=== PATIENT | female | born 1975 | race Caucasian/White ===

== ENCOUNTER 2016-10-16 21:36 | Emergency (ER) | payer MEDICAID ==
[~2016-10-16] VITALS: Ht 157.5 cm; Wt 63.7 kg
[2016-10-16] MEDS ORDERED: KETOROLAC 30 MG/1 ML ONE (23:21)
[2016-10-16] MEDS ORDERED: ONDANSETRON 2MG/ML, 2ML ONE (23:21)
[2016-10-16] MEDS ORDERED: DIPHENHYDRAMINE 50 MG/ML, 1ML ONE (23:21)
[2016-10-16] MEDS ORDERED: PROCHLORPERAZINE 5 MG/ML, 2ML ONE (23:21)
[2016-10-16] MEDS ORDERED: PROCHLORPERAZINE 5 MG/ML, 2ML IVPush ONE (23:30)
[2016-10-16] MEDS ORDERED: SODIUM CHLORIDE 0.9% 1,000ML IVBOLUS ONE (23:30)
[2016-10-16] MEDS ORDERED: KETOROLAC 30 MG/1 ML IVPush ONE (23:30)
[2016-10-16] MEDS ORDERED: SODIUM CHLORIDE FLUSH 10ML SYR IVF ONE (23:30)
[2016-10-16] MEDS ORDERED: ONDANSETRON 2MG/ML, 2ML IVPush ONE (23:30)
[2016-10-16] MEDS ORDERED: DIPHENHYDRAMINE 50 MG/ML, 1ML IVPush ONE (23:30)
[2016-10-16 23:43] LABS: ASPARTATE AMINO TRANSFERASE 13 U/L (15-37); BLOOD UREA NITROGEN 13 mg/dL (7-18)
[2016-10-16 23:50] LABS: IS PT STATUS REG ER OR PRE ER? YES
[2016-10-17 03:13] VITALS: BP 93/48
== END 2016-10-17 03:15 | disposition home or self-care (01) ==
LOC: ED 23:59
DX: G43.C1 Periodic headache syndromes in child or adult, intractable (principal); R11.2 Nausea with vomiting, unspecified; E86.0 Dehydration
CPT/HCPCS: 36415; 70450; 71010; 80053; 81003; 83690; 84484; 84703; 85025; 93005; 96361; 96374; 96375; 99285; J0780; J1200; J1885; J2405; J7030

== ENCOUNTER 2018-09-05 09:28 | Outpatient (CLI) | payer OTHER ==
[2018-09-24] MEDS ORDERED: None per pt (13:12)
== END 2018-09-05 23:59 | disposition home or self-care (01) ==
LOC: RAD 09:28
PROVIDERS: ATTEND Obstetrics & Gynecology
DX: N85.8 Other specified noninflammatory disorders of uterus (principal)
CPT/HCPCS: 76830

== ENCOUNTER 2018-09-25 05:46 | Observation (INO) | payer OTHER ==
[2018-09-24 13:50] LABS: BASOPHILS # (AUTO) 0.02 x10^3/uL (0-0.1); BASOPHILS % (AUTO) 0 % (0-1); EOSINOPHILS # (AUTO) 0.11 x10^3/uL (0-0.4); EOSINOPHILS % (AUTO) 2 % (1-7); LYMPHOCYTES % (AUTO) 30 % (22-44); MD NO; MEAN CORPUSCULAR HGB CONC 32.6 g/dL (32.4-35.8); MEAN PLATELET VOLUME 8.4 fL (7.4-10.4); MONOCYTES # (AUTO) 0.55 x10^3/uL (0.2-0.8); MONOCYTES % (AUTO) 8 % (2-9); NEUTROPHILS # (AUTO) 4.08 x10^3/uL (1.8-6.8); NEUTROPHILS % (AUTO) 60 % (42-75); PLATELET COUNT 314 x10^3/uL (130-400); RED BLOOD COUNT 4.22 x10^6/uL (3.82-5.3)
[2018-09-24 13:58] LABS: ALANINE AMINOTRANSFERASE 19 U/L (12-78); ALBUMIN 3.3 g/dL (3.4-5.0); ANION GAP 4 mmol/L (5-15); CALCIUM 8.4 mg/dL (8.5-10.1); CHLORIDE 107 mmol/L (98-107); CREATININE 0.57 mg/dL (0.55-1.02)
[2018-09-24 14:03] LABS: ALKALINE PHOSPHATASE 90 U/L (45-117); BILIRUBIN,TOTAL 0.3 mg/dL (0.2-1.0); TOTAL PROTEIN 6.7 g/dL (6.4-8.2)
[~2018-09-25] VITALS: Ht 157.5 cm; Wt 77.7 kg
[~2018-09-25 05:46] MED LIST: None per pt
[2018-09-25] MEDS ORDERED: LACTATED RINGERS 1,000 ML IV SCH (06:04)
[2018-09-25] MEDS ORDERED: BUPIVACAINE/PF 0.25% ONE (07:05)
[2018-09-25] MEDS ORDERED: EPINEPHRINE 1 MG/ML, 1ML ONE (07:05)
[2018-09-25] MEDS ORDERED: FLUORESCEIN SODIUM 500 MG/5 ML ONE (07:05)
[2018-09-25] MEDS ORDERED: FENTANYL PF 250 MCG/5ML ONE (07:29)
[2018-09-25] MEDS ORDERED: MIDAZOLAM 1 MG/ML, 2ML ONE (07:29)
[2018-09-25] MEDS ORDERED: SCOPOLAMINE PATCH, 1.5MG PATCH.TD72 TD ONE (07:30)
[2018-09-25] MEDS ORDERED: GABAPENTIN 300 MG CAPSULE PO ONE (07:30)
[2018-09-25] MEDS ORDERED: DIAZEPAM 5 MG TABLET PO ONE (07:30)
[2018-09-25] MEDS ORDERED: ACETAMINOPHEN 500 MG TABLET PO ONE (07:30)
[2018-09-25] MEDS ORDERED: ONDANSETRON 2MG/ML, 2ML IV PRN ×2 (08:30→17:30)
[2018-09-25] MEDS ORDERED: hydrALAzine 20 MG/ML, 1ML IV PRN (08:30)
[2018-09-25] MEDS ORDERED: MEPERIDINE/PF 25MG/0.5ML IVPush PRN (08:30)
[2018-09-25] MEDS ORDERED: ALBUTEROL/IPRATROPIUM 2.5MG/0.5MG, 3 ML NPPB PRN (08:30)
[2018-09-25] MEDS ORDERED: SCOPOLAMINE PATCH, 1.5MG PATCH.TD72 TD PRN (08:30)
[2018-09-25] MEDS ORDERED: HYDROmorphone 2 MG/ML, 1ML IVPush PRN (08:30)
[2018-09-25] MEDS ORDERED: MIDAZOLAM 1 MG/ML, 2ML IV PRN (08:30)
[2018-09-25] MEDS ORDERED: GLYCOPYRROLATE 0.2MG/1ML, 5ML ONE (09:36)
[2018-09-25] MEDS ORDERED: ROCURONIUM 10MG/ML,5ML ONE (09:36)
[2018-09-25] MEDS ORDERED: ONDANSETRON 2MG/ML, 2ML ONE (09:36)
[2018-09-25] MEDS ORDERED: NEOSTIGMINE 1 MG/ML, 10ML ONE (09:36)
[2018-09-25] MEDS ORDERED: CEFAZOLIN 1,000 MG ONE (09:36)
[2018-09-25] MEDS ORDERED: PROPOFOL 10 MG/ML, 20ML ONE (09:36)
[2018-09-25] MEDS ORDERED: SUCCINYLCHOLINE 20 MG/ML, 10ML ONE (09:36)
[2018-09-25] MEDS ORDERED: DEXAMETHASONE 4 MG/ML, 1ML ONE (09:36)
[2018-09-25] MEDS ORDERED: PROMETHAZINE 25 MG/ML, 1ML ONE (09:46)
[2018-09-25] MEDS ORDERED: FENTANYL PF 100 MCG/2ML ONE (09:47)
[2018-09-25] MEDS ORDERED: OXYcodone 5 MG/5 ML ORAL.SOL UDC ONE ×2 (09:47→10:38)
[2018-09-25] MEDS: FENTANYL PF 100 MCG/2ML IV PRN ×3 (09:52→11:04)
[2018-09-25] MEDS: OXYcodone 5 MG/5 ML ORAL.SOL UDC PO PRN ×3 (09:56→16:19)
[2018-09-25] MEDS: PROMETHAZINE 25 MG/ML, 1ML IV PRN ×2 (09:58→11:00)
[2018-09-25 14:19] LABS: MEAN CORPUSCULAR HEMOGLOBIN 30.7 pg (27.0-34.8); MEAN CORPUSCULAR HGB CONC 33.3 g/dL (32.4-35.8); MEAN CORPUSCULAR VOLUME 92.1 fL (80-100); MEAN PLATELET VOLUME 8.6 fL (7.4-10.4); PLATELET COUNT 309 x10^3/uL (130-400); RED BLOOD COUNT 4.04 x10^6/uL (3.82-5.3)
[2018-09-25 14:30] LABS: MD YES
[2018-09-25] MEDS ORDERED: KETOROLAC 30 MG/1 ML ONE (15:33)
[2018-09-25 15:40] LABS: BAND#(MANUAL) 0.27 x10^3/uL; BANDS%(MANUAL) 2 % (0-7); LYMPH#(MANUAL) 0.41 x10^3/uL (1-3.4); LYMPHS% (MANUAL) 3 % (22-44); MONOS#(MANUAL) 0.14 x10^3/uL (0.3-2.7); MONOS% (MANUAL) 1 % (2-9); SEG#(MANUAL) 12.78 x10^3/uL (1.8-6.8); SEGS% (MANUAL) 94 % (42-75)
[2018-09-25 15:41] LABS: <PLATELET ESTIMATE> ADEQUATE; <PLT MORPHOLOGY> NORMAL PLT MORPH; <RBC MORPHOLOGY> NORMAL
[2018-09-25] MEDS: KETOROLAC 30 MG/1 ML IVPush SCH ×2 (15:53→21:56)
[2018-09-25 16:59] VITALS: BP 96/59
[2018-09-25] MEDS ORDERED: HYDROmorphone 2 MG/ML, 1ML IV PRN (17:30)
[2018-09-25] MEDS ORDERED: KETOROLAC 30 MG/1 ML IV PRN (17:30)
[2018-09-25] MEDS ORDERED: ACETAMINOPHEN 650 MG SUPP PR PRN (17:30)
[2018-09-25] MEDS ORDERED: ACETAMINOPHEN 325 MG TABLET PO PRN (17:30)
[2018-09-25] MEDS ORDERED: BISACODYL 10 MG SUPP PR PRN (17:30)
[2018-09-25] MEDS ORDERED: INSTRUCTION SEE COMMENTS XX PRN (17:30)
[2018-09-25] MEDS ORDERED: MEPERIDINE/PF 100 MG/ML IM PRN (17:30)
[2018-09-25] MEDS: D5%-LACTATED RINGERS 1,000 ML IV SCH (17:49)
[2018-09-25] MEDS ORDERED: morphine SULFATE 10 MG/ML, 1ML IV PRN (18:00)
[2018-09-25 19:26] VITALS: BP 92/52
[2018-09-25] MEDS ORDERED: FLURAZEPAM 15 MG CAPSULE PO PRN (21:00)
[2018-09-25] MEDS ORDERED: ZOLPIDEM 5MG TABLET PO PRN (21:00)
[2018-09-25] MEDS ORDERED: SENNA/DOCUSATE TABLET PO SCH (21:00)
[2018-09-25] MEDS: IBUPROFEN 600 MG TABLET PO SCH (21:00)
[2018-09-25] MEDS: DOCUSATE 100 MG CAPSULE PO SCH (21:18)
[2018-09-25] MEDS: OXYcodone/APAP 5/325MG TABLET PO PRN (21:18)
[2018-09-25] MEDS: SIMETHICONE 80 MG CHEW TAB PO SCH (21:18)
[2018-09-26 00:03] VITALS: BP 94/58
[2018-09-26] MEDS: D5%-LACTATED RINGERS 1,000 ML IV SCH ×2 (02:00→08:08)
[2018-09-26] MEDS: OXYcodone/APAP 5/325MG TABLET PO PRN (02:20)
[2018-09-26 03:28] VITALS: BP 94/59
[2018-09-26] MEDS: KETOROLAC 30 MG/1 ML IVPush SCH ×2 (03:56→10:09)
[2018-09-26] MEDS: IBUPROFEN 600 MG TABLET PO SCH ×2 (05:51→10:08)
[2018-09-26 07:53] VITALS: BP 97/64
[2018-09-26] MEDS: DOCUSATE 100 MG CAPSULE PO SCH (08:41)
[2018-09-26] MEDS: SIMETHICONE 80 MG CHEW TAB PO SCH (08:42)
[2018-09-26 09:36] LABS: MEAN CORPUSCULAR HEMOGLOBIN 29.7 pg (27.0-34.8); MEAN CORPUSCULAR HGB CONC 32.1 g/dL (32.4-35.8); MEAN CORPUSCULAR VOLUME 92.5 fL (80-100); MEAN PLATELET VOLUME 8.4 fL (7.4-10.4); PLATELET COUNT 281 x10^3/uL (130-400); RED BLOOD COUNT 3.56 x10^6/uL (3.82-5.3); RED CELL DISTRIBUTION WIDTH 13.3 % (9.6-15.2)
[2018-09-26 09:37] LABS: HEMOGRAM NOTE RECHECKED
[2018-09-26 10:48] VITALS: BP 99/64
[2018-09-26 10:53] LABS: BASOPHILS # (AUTO) 0.02 x10^3/uL (0-0.1); BASOPHILS % (AUTO) 0 % (0-1); EOSINOPHILS # (AUTO) 0.02 x10^3/uL (0-0.4); EOSINOPHILS % (AUTO) 0 % (1-7); LYMPHOCYTES # (AUTO) 2.21 x10^3/uL (1-3.4); LYMPHOCYTES % (AUTO) 22 % (22-44); MD SCAN; MONOCYTES # (AUTO) 0.95 x10^3/uL (0.2-0.8); MONOCYTES % (AUTO) 9 % (2-9); NEUTROPHILS % (AUTO) 68 % (42-75)
[2018-09-26] MEDS ORDERED: OXYC-302 PO (11:46)
[2018-09-26] MEDS ORDERED: DOCU-131 PO (11:47)
[2018-09-26] MEDS ORDERED: IBUP-1222 PO (11:47)
== END 2018-09-26 12:07 | disposition home or self-care (01) ==
LOC: OUT 05:46 → ORIP 16:17 → 4NOR 16:40
PROVIDERS: ADMIT Obstetrics & Gynecology; ATTEND Obstetrics & Gynecology
DX: N92.0 Excessive and frequent menstruation with regular cycle (principal); D25.9 Leiomyoma of uterus, unspecified; N94.6 Dysmenorrhea, unspecified; N85.4 Malposition of uterus; Z98.891 History of uterine scar from previous surgery; Z98.51 Tubal ligation status
CPT/HCPCS: 36415; 58552; 80053; 84703; 85025; 86850; 86900; 88307; 96374; 96376; G0378; J0171; J0330; J0690; J1100; J1885; J2250; J2405; J2550; J2704; J2710; J3010; J3490; J7120; J7121

== ENCOUNTER 2018-10-01 11:54 | Emergency (ER) | payer OTHER ==
[~2018-10-01] VITALS: Ht 157.5 cm; Wt 73.8 kg
[~2018-10-01 11:54] MED LIST changes: +DOCU-131 PO; +IBUP-1222 PO; +OXYC-302 PO
[2018-10-01 12:49] LABS: BASOPHILS # (AUTO) 0.03 x10^3/uL (0-0.1); BASOPHILS % (AUTO) 0 % (0-1); EOSINOPHILS % (AUTO) 1 % (1-7); LYMPHOCYTES # (AUTO) 1.78 x10^3/uL (1-3.4); LYMPHOCYTES % (AUTO) 22 % (22-44); MD NO; MEAN CORPUSCULAR HEMOGLOBIN 30.1 pg (27.0-34.8); MEAN CORPUSCULAR HGB CONC 32.9 g/dL (32.4-35.8); MEAN CORPUSCULAR VOLUME 91.3 fL (80-100); MEAN PLATELET VOLUME 8.6 fL (7.4-10.4); MONOCYTES # (AUTO) 0.72 x10^3/uL (0.2-0.8); MONOCYTES % (AUTO) 9 % (2-9); NEUTROPHILS # (AUTO) 5.63 x10^3/uL (1.8-6.8); NEUTROPHILS % (AUTO) 68 % (42-75); PLATELET COUNT 388 x10^3/uL (130-400); RED BLOOD COUNT 4.18 x10^6/uL (3.82-5.3)
--- NOTE | 2018-10-01 16:13 | NUR ---
DIRECTOR OF WOMEN'S SERVICES: PT TO ROOM FROM LOBBY, VIA WHEELCHAIR
--- NOTE | 2018-10-01 16:25 | NUR ---
PT BROUGHT BACK TO ROOM IN W/C. ABLE TO TRANSFER WITH STEADY GAIT. PT PRESENTS WITH RIGHT POSTERIOR GILBERT THAT RADIATES INTO NECK AND RIGHT SHOULDER STARTING 3 DAYS AGO. STATES SOME N/V. HAS NOT VOMITED TODAY. WAS RECENTLY IN HOSPITAL FOR AN ABD SURGERY. NAD NOTED. BREATHING REGULAR AND UNLABORED. AWAITING FOR EVAL AND ORDERS. WILL CONTINUE TO MONITOR.
[2018-10-01] MEDS ORDERED: BUPIVACAINE 0.25% ONE (16:50)
[2018-10-01] MEDS ORDERED: KETOROLAC 30 MG/1 ML ONE (16:50)
[2018-10-01] MEDS ORDERED: ONDANSETRON ODT 4 MG ONE (16:50)
[2018-10-01] MEDS ORDERED: ACETAMINOPHEN 325 MG TABLET ONE (16:50)
[2018-10-01] MEDS ORDERED: LIDOCAINE-MPF 1%, 5ML ONE (16:50)
[2018-10-01] MEDS ORDERED: DIPHENHYDRAMINE 25 MG CAPSULE ONE (16:51)
--- NOTE | 2018-10-01 16:59 | NUR ---
PT MEDICATED PER JUN. RIGHTS VERIFIED PRIOR. 3P'S ADDRESSED.
[2018-10-01] MEDS ORDERED: KETOROLAC 30 MG/1 ML IM ONE (17:00)
[2018-10-01] MEDS ORDERED: ONDANSETRON ODT 4 MG PO ONE (17:00)
[2018-10-01] MEDS ORDERED: LIDOCAINE 1%, 10ML INFIL ONE (17:00)
[2018-10-01] MEDS ORDERED: BUPIVACAINE 0.25% INFIL ONE (17:00)
[2018-10-01] MEDS ORDERED: DIPHENHYDRAMINE 25 MG CAPSULE PO ONE (17:00)
[2018-10-01] MEDS ORDERED: ACETAMINOPHEN 325 MG TABLET PO ONE (17:00)
[2018-10-01 17:43] VITALS: BP 123/70
== END 2018-10-01 17:45 | disposition home or self-care (01) ==
LOC: ED 16:17
DX: G44.219 Episodic tension-type headache, not intractable (principal); M62.838 Other muscle spasm
CPT/HCPCS: 20552; 36415; 70450; 85025; 96372; 99284; J1885; Q0162; Q0163

== ENCOUNTER → 2018-11-03 | Outpatient (CLI) | payer OTHER | END | disposition home or self-care (01) | LOC: CFH 11:47 | PROVIDERS: ATTEND Obstetrics & Gynecology | DX: Z12.31 Encounter for screening mammogram for malignant neoplasm of breast (principal) | CPT/HCPCS: 77067 ==

== ENCOUNTER 2019-08-07 18:04 | Emergency (ER) | payer SELFPAY ==
[~2019-08-07] VITALS: Ht 152.4 cm; Wt 68.2 kg
[2019-08-07 18:11] VITALS: BP 120/72
[2019-08-07] MEDS ORDERED: ONDANSETRON ODT 4 MG ONE ×2 (18:33→20:04)
[2019-08-07] MEDS ORDERED: ACET325T14 PO (18:38)
[2019-08-07 18:55] LABS: BASOPHILS # (AUTO) 0.05 x10^3/uL (0-0.1); BASOPHILS % (AUTO) 0 % (0-1); EOSINOPHILS # (AUTO) 0.04 x10^3/uL (0-0.4); EOSINOPHILS % (AUTO) 0 % (1-7); LYMPHOCYTES # (AUTO) 1.82 x10^3/uL (1-3.4); LYMPHOCYTES % (AUTO) 14 % (22-44); MD NO; MEAN CORPUSCULAR HEMOGLOBIN 31.9 pg (27.0-34.8); MEAN CORPUSCULAR VOLUME 93.7 fL (80-100); MONOCYTES # (AUTO) 0.52 x10^3/uL (0.2-0.8); MONOCYTES % (AUTO) 4 % (2-9); NEUTROPHILS % (AUTO) 81 % (42-75); PLATELET COUNT 279 x10^3/uL (130-400); RED BLOOD COUNT 4.69 x10^6/uL (3.82-5.3); RED CELL DISTRIBUTION WIDTH 12.2 % (9.6-15.2)
[2019-08-07] MEDS ORDERED: ACETAMINOPHEN 500 MG TABLET ONE (18:56)
[2019-08-07] MEDS ORDERED: MAALOX/HYOSCYAMINE/LIDOCAINE 45 ML BTL ONE (18:59)
[2019-08-07] MEDS ORDERED: MAALOX/HYOSCYAMINE/LIDOCAINE 45 ML BTL PO ONE (19:00)
[2019-08-07] MEDS ORDERED: ACETAMINOPHEN 500 MG TABLET PO ONE (19:00)
[2019-08-07] MEDS ORDERED: ONDANSETRON ODT 4 MG PO ONE ×2 (19:00→20:00)
[2019-08-07 19:01] LABS: ALANINE AMINOTRANSFERASE 21 U/L (12-78); ALBUMIN 3.8 g/dL (3.4-5.0); ANION GAP 6 mmol/L (5-15); CHLORIDE 107 mmol/L (98-107); CREATININE 0.58 mg/dL (0.55-1.02)
[2019-08-07 19:04] LABS: ALKALINE PHOSPHATASE 68 U/L (45-117); BILIRUBIN,TOTAL 0.6 mg/dL (0.2-1.0); TOTAL PROTEIN 7.6 g/dL (6.4-8.2)
--- NOTE | 2019-08-07 19:28 | NUR ---
Pt state pain has resolved with medication.
[2019-08-07] MEDS ORDERED: METHOCARBAMOL 750 MG TABLET PO ONE (20:00)
[2019-08-07] MEDS ORDERED: METHOCARBAMOL 750 MG TABLET ONE (20:04)
== END 2019-08-07 20:39 | disposition home or self-care (01) ==
LOC: MERGE 19:00 → ED 19:00
DX: R10.13 Epigastric pain (principal); R11.2 Nausea with vomiting, unspecified; R42 Dizziness and giddiness; M54.2 Cervicalgia; R51 Headache
CPT/HCPCS: 36415; 80053; 83690; 84703; 85025; 93005; 99284; Q0162